=== PATIENT | male | born 1975 | race African-American/Black ===

== ENCOUNTER 2018-01-24 11:29 | Emergency (ER) | payer MEDICAID ==
[~2018-01-24] VITALS: Ht 180.3 cm; Wt 77.0 kg
[2018-01-24 11:53] VITALS: BP 107/72
== END 2018-01-24 13:16 | disposition home or self-care (01) ==
LOC: ER 13:10
DX: J02.9 Acute pharyngitis, unspecified (principal)
CPT/HCPCS: 99282

== ENCOUNTER 2019-03-13 17:39 | Emergency (ER) | payer MEDICAID ==
[~2019-03-13] VITALS: Ht 175.3 cm; Wt 82.0 kg
[2019-03-13 18:33] LABS: BASOPHILS % 0.6 % (0.0-2.0); EOSINOPHILS % 2.1 % (0.0-5.0); HEMATOCRIT. 42.5 % (42.0-52.0); HEMOGLOBIN. 14.1 g/dL (14.0-18.0); LYMPHOCYTES % 27.1 % (20.0-50.0); MEAN CORPUSCULAR HEMOGLOBIN 30.7 pg (28.0-32.0); MEAN CORPUSCULAR VOLUME 92.8 fL (80.0-94.0); MEAN PLATELET VOLUME 8.7 fl (7.4-10.4); MONOCYTES % 8.2 % (2.0-8.0); PLATELET 167 x1000/uL (130-400); RED BLOOD CELL COUNT 4.59 mill/uL (4.7-6.1); RED CELL DISTRIBUTION WIDTH 13.2 % (11.6-14.6)
[2019-03-13 21:30] VITALS: BP 131/81
== END 2019-03-13 21:30 | disposition home or self-care (01) ==
LOC: ER 17:47
DX: K62.5 Hemorrhage of anus and rectum (principal)
CPT/HCPCS: 36415; 99283